=== PATIENT | female | born 1970 | race African-American/Black ===

== ENCOUNTER 2019-04-19 05:43 | Observation (INO) | payer SELFPAY ==
[2019-04-19] MEDS ORDERED: Metoprolol Tartrate 5 MG/5 ML VIAL ONE (05:52)
[2019-04-19 07:31] VITALS: BMI 36.3
[2019-04-19] MEDS ORDERED: Acetaminophen 325 MG TAB PO PRN (08:17)
[2019-04-19] MEDS ORDERED: Ondansetron ODT 4 MG TAB PO PRN (08:17)
[2019-04-19] MEDS: Amlodipine 5 MG TAB PO SCH (09:21)
[2019-04-19 10:30] LABS: Iron 14 ug/dL (50-170); Iron Binding Capacity, Total 494 mcg/dL (265-497)
[2019-04-19 10:37] LABS: Troponin I Less than 0.010 ng/mL (< 0.028)
[2019-04-19 10:48] LABS: Ferritin 4.71 ng/mL (10-291); Thyroid Stimulating Hormone 0.6792 uIU/mL (0.35-4.94)
--- NOTE | 2019-04-19 13:04 | PDOC.EVN ---
Event Note - Event Note Event Note: I have personally seen and examined pt, assessment and plan discussed with BASS VIOL REPAIRER, agreed with note
[2019-04-19 13:54] LABS: Troponin I Less than 0.010 ng/mL (< 0.028)
--- NOTE | 2019-04-19 16:23 | HP ---
PRIMARY CARE PHYSICIAN: None. CHIEF COMPLAINT: Symptomatic anemia. HISTORY OF PRESENT ILLNESS: Ms. Ricardo is a 49-year-old female with past medical history of hypertension, however, does not take any home medications for this, who has presented to [facility] after being transferred from the [place] [facility] after she experienced symptoms of her [id number] anemia. She states that she woke up in the middle of the night with some left-sided chest pain along with some shortness of breath, dizziness, and fatigue. She states that her fatigue has been gradually getting worse over the last couple of days. She states that she has a history of anemia due to her heavy menstrual periods, she states that she had recently moved from [place] to [place] and had denied any PCP or proper followup. She denied any fever, chills, any palpitations, abdominal pain, nausea, or vomiting. She was found to be hypertensive on arrival to the ER at 193/108, this seem to improve to 159/94, status post IV Lopressor 5 mg, she states that her chest pain resolved and she started to feel better. It was found that her anemia was [id number]. The current hemoglobin is 6.5, which was noted to be 7.2 back in September. She states that her last menstrual period was last month, around the . Currently, she denied any chest pain, palpitations, shortness of breath, abdominal pain, nausea, or vomiting. She was lying comfortably in bed. A unit of packed red blood cells is ordered and will be transfused today. She has stable vital signs; BP of 161/73 [QAMARKER] O2 saturation of 99% on room air. She appears to be in no acute distress at this time. She denied any history of iron deficiency anemia, however iron and ferritin levels are pending at this time. Troponin is currently normal and less than 0.010. It is determined that the patient be admitted under observation for further workup and management of her symptoms. REVIEW OF SYSTEMS: All other systems reviewed and found to be negative unless mentioned in the HPI. PAST MEDICAL HISTORY: Hypertension and menorrhagia. PAST SURGICAL HISTORY: section x7. PSYCHIATRIC HISTORY: None. SOCIAL HISTORY: The patient states that she drinks socially, roughly every week, 1 to 5 drinks. She has denied any tobacco or illicit drug use. FAMILY HISTORY: Noncontributory to her condition. KNOWN ALLERGIES: No known drug allergies. CURRENT HOME MEDICATIONS: None. PHYSICAL EXAMINATION: VITAL signs: BP 161/73, pulse 84, respirations are 18, temperature 98.2 degrees Fahrenheit, and O2 saturation 99% on room air. GENERAL: The patient is awake, alert, and oriented x3. She is currently lying comfortably in bed and in no acute distress at this time. HEENT: Atraumatic and normocephalic. Pupils are round and reactive to light. Extraocular muscles are intact. Moist mucous membranes are noted. NECK: Soft and supple. No JVD noted. Trachea midline. CARDIOVASCULAR: Positive S1 and S2. Regular rate and rhythm. No murmur auscultated. RESPIRATORY: Clear to auscultation bilaterally. No wheezes, rales, or rhonchi. ABDOMEN: Soft and nontender. Bowel sounds are present. MUSCULOSKELETAL: Strength 5+ bilaterally upper and lower extremities. Moves all extremities equal. Pedal and radial pulses are 2+ bilaterally. No edema noted. NEUROLOGIC: Cranial nerves 2 through 12 grossly intact. No focal deficits noted. Speech, intact and normal. Gait, not assessed. SKIN: Warm dry and intact. No rashes. No ulcerations noted. PSYCHIATRIC: Good mood and affect. LABORATORY DATA: WBC 7.3, RBC 3.60, hemoglobin 6.5, MCV 63.2, and platelets are 284. D-dimer 0.70. Sodium 142, potassium 3.4, creatinine 0.83, BUN 13, anion gap 16, estimated GFR 89, glucose 110, troponin less than 0.010. BNP 65.2. Lipase 21. DIAGNOSTIC IMAGING: Portable chest x-ray showed no acute cardiopulmonary process. CTA of chest showed no evidence of pulmonary artery embolism. ASSESSMENT/PLAN: 1. Symptomatic anemia, the patient's hemoglobin on arrival was 6.5. One unit of packed red blood cells is ordered and will be transfused today. Her CBC will be closely monitored and rechecked in the a.m. She will undergo further transfusions as needed for hemoglobin less than 7.0. Iron, ferritin, and other studies will be checked and currently pending at this time. 2. History of menorrhagia, currently stable at this time. The patient reports last menstrual period about 3 weeks ago, this is likely the cause of her chronic anemia. 3. Possible demand ischemia, she had reported chest pain and shortness of breath prior to arrival. This is likely secondary to her underlying anemia. Currently, she is asymptomatic at this time. Her cardiac enzymes are currently normal. No further workup at this time. 4. Elevated D-dimer 0.70, her CTA of chest was negative for PE. 5. Hypokalemia, potassium was 3.4. This will be rechecked. 6. Hypertension. The patient does not take any home antihypertensives. Therefore, she will be started on low-dose amlodipine during hospital course and other vital signs will be monitored closely. 7. Deep venous thrombosis and GI prophylaxis, we will hold any anticoagulation at this time due to patient's underlying anemia. 8. Code status, full code. DISPOSITION: The patient will likely be transfused with 1 unit of packed red blood cells. CBC and other lab work will be monitored closely and she will likely be discharged home within the next 24 to 48 hours with close outpatient followup, the patient states that she had just recently moved to [place] and does not have any PCP, she will be provided with further resources for appropriate followup upon discharge. Job ID: [id number]
--- NOTE | 2019-04-19 20:04 | PDOC.EVN ---
Event Note - Event Note Event Note: Informed of patients low Hb 6.5 this am, and no repeat since then. She has had 1 unit PRBCs, will repeat H&H. If low, will continue serial H/Hs and transfuse if necessary. Low iron levels noted, no active menses. Asymptomatic. Also informed of further elevated BP throughout the day 176-180 systolic. Patient asymptomatic. Started on low dose Norvasc 2.5 mg PO by day team. I have started PRN hydralazine, consider switching to BRIE inhibitor or increasing Norvasc. Will continue to monitor BP overnight.
[2019-04-19 20:07] LABS: Hemoglobin 7.4 g/dL (12.0-16.0)
[2019-04-19] MEDS: hydrALAZINE 20 MG/ML VIAL SLOW IVP PRN (21:10)
[2019-04-19 21:42] LABS: Anion Gap 12 mmol/L (10-20); BUN (Urea Nitrogen) 8 mg/dL (7.0-18.7); Calc. Creatinine Clearance 154 mL/min (70-130); Calcium 9.3 mg/dL (7.8-10.44); Carbon Dioxide 27 mmol/L (22-29); Chloride 102 mmol/L (98-107); Estimated GFR-MDRD Greater than 90; Glucose 100 mg/dL (70-105); Magnesium 1.8 mg/dL (1.6-2.6); Potassium 3.2 mmol/L (3.5-5.1); Sodium 138 mmol/L (136-145)
[2019-04-20 06:06] LABS: Anion Gap 12 mmol/L (10-20); BUN (Urea Nitrogen) 8 mg/dL (7.0-18.7); Calc. Creatinine Clearance 165 mL/min (70-130); Calcium 9.3 mg/dL (7.8-10.44); Carbon Dioxide 26 mmol/L (22-29); Chloride 102 mmol/L (98-107); Estimated GFR-MDRD Greater than 90; Glucose 97 mg/dL (70-105); Potassium 3.3 mmol/L (3.5-5.1); Sodium 137 mmol/L (136-145)
[2019-04-20 06:28] LABS: #Eosinphils 0.2 thou/uL (0.0-0.7); #Lymphocytes 1.9 thou/uL (1.20-3.40); #Monocytes 0.6 thou/uL (0.11-0.59); #Neutrophils 4.6 thou/uL (1.40-6.50); %Basophils 0.7 % (0.0-1.0); %Eosinophils 2.7 % (0.0-10.0); %Lymphocytes 25.6 % (21.0-51.0); %Monocytes 8.5 % (0.0-10.0); %Neutrophils 62.6 % (42.0-75.0); Anisocytosis MODERATE=16-30 cells (100X) (0-5/hpf); Hemoglobin 7.8 g/dL (12.0-16.0); Hypochromia SLIGHT = 6-15 cells (100X) (0-5/hpf); MDiff Complete? YES; Mean Corpuscular Hemoglobin 19.8 pg (27.0-31.0); Mean Corpuscular Volume 65.9 fL (78.0-98.0); Mean Platelet Volume 4.7 fL (7.4-10.4); Microcytosis SLIGHT = 6-15 cells (100X) (0-5/hpf); Platelet Count 313 thou/uL (130-400); Platelet Morphology Comment Appears Adequate; Polychromasia SLIGHT = 2-3 cells (100X) (0-2/hpf); RBC Distribution Width 22.6 % (11.5-14.5); Red Blood Cell (RBC) Count 3.92 mill/uL (4.20-5.40); White Blood Cell (WBC) Count 7.4 thou/uL (4.8-10.8)
[2019-04-20] MEDS: hydrALAZINE 20 MG/ML VIAL SLOW IVP PRN (07:33)
[2019-04-20] MEDS: Amlodipine 5 MG TAB PO SCH (07:33)
[2019-04-20] MEDS ORDERED: Ferrous Sulfate 325 MG TAB PO SCH ×2 (10:45→17:00)
[2019-04-20 12:42] VITALS: BP 175/92; TEMP 98.5
--- NOTE | 2019-04-20 18:00 | DIS ---
DATE OF ADMISSION: 04/19/2019 DATE OF DISCHARGE: 04/20/2019 ADMITTING CHIEF COMPLAINT: Shortness of breath, dizziness, and fatigue. FINAL DISCHARGE DIAGNOSES: 1. Acute on chronic blood loss anemia, status post transfusion x1 unit PRBC, symptomatically resolved. 2. Longstanding chronic anemia secondary to menorrhagia, hemoglobin 7.8 status post transfusion, per review of records baseline hemoglobin between 7.2 and 7.4. 3. Hypertension, newly diagnosed. BRIEF HOSPITAL COURSE: Ms. Yari Ricardo is a pleasant 49-year-old female with past medical history significant for chronic anemia as outlined above, who presented to the [facility] in transfer from [facility] after experiencing shortness of breath, dizziness, and fatigue. The patient has a long-standing issue with chronic anemia secondary to menorrhagia. Hysterectomy has been recommended in the past, however, the patient has had issues with followup and funding and has not been able to have this performed. Initial hemoglobin on arrival to our facility was 6.5. She was given 1 unit of PRBC. Followup hemoglobin this morning is 7.8. All of the patient's admitting complaints have resolved. She has ambulated the halls without issue. Her blood pressure was noted to be elevated on arrival and 160 systolic overnight. She was given p.r.n. hydralazine and initiated on antihypertensive regimen with amlodipine, which she has tolerated well. The patient's D-dimer was elevated at 0.7, her CTA of chest was negative for PE. CONDITION ON DISCHARGE: Stable. DISCHARGE DISPOSITION: Home. DISCHARGE INSTRUCTIONS: The patient has been approved for Medicaid, and Case Management has been working closely with the patient this hospitalization to get this funding approved for the patient. She will follow up with both Gynecology and primary care physician at discharge. I have advised her to continue to monitor her blood pressure at home. DISCHARGE MEDICATIONS: New discharge medications for the patient will be amlodipine 5 mg daily and iron sulfate 325 mg b.i.d. The care of this patient has been discussed with Dr. Campoverde, who does agree with the above discharge and plan as noted above. Job ID: [id number]
--- NOTE | 2019-04-25 15:12 | EKG ---
Test Reason : Blood Pressure : / mmHG Vent. Rate : 090 BPM Atrial Rate : 090 BPM P-R Int : 150 ms QRS Dur : 090 ms QT Int : 390 ms P-R-T Axes : 051 007 014 degrees QTc Int : 477 ms Normal sinus rhythm Moderate voltage criteria for LVH, may be normal variant Borderline ECG Confirmed by ISABELA VELÁSQUEZ ([id number]), editor farm journal NAY RODRIGUEZ ([id number]) on 04/25/2019 3:12:26 PM Referred By: Confirmed By:ISABELA VELÁSQUEZ
== END 2019-04-20 13:31 | disposition home or self-care (01) ==
LOC: ERS 05:43 → 2SW 06:04
PROVIDERS: ADMIT Internal Medicine; ATTEND Internal Medicine
DX: D62 Acute posthemorrhagic anemia (principal); N92.0 Excessive and frequent menstruation with regular cycle; R06.02 Shortness of breath; R42 Dizziness and giddiness; R53.83 Other fatigue; I10 Essential (primary) hypertension; E87.6 Hypokalemia
CPT/HCPCS: 36415; 36430; 80048; 82728; 83540; 83550; 83735; 84443; 85025; 86850; 86900; 86901; 93005; 96374; 96375; G0378; J0360; P9016

== ENCOUNTER 2019-07-08 10:28 | Outpatient (CLI) | payer MEDICAID, OTHER ==
--- NOTE | 2019-07-08 11:00 | MMO ---
Bilateral MAMMO Bilat Screen DDI. CLINICAL HISTORY: Patient is 49 years old and is seen for screening. The patient has the following family history of breast cancer: paternal aunt, at age 46, malignant (generic). The patient has no personal history of cancer. VIEWS: The views performed were: bilateral craniocaudal and bilateral mediolateral oblique. This study has been interpreted with the assistance of computer-aided detection. MAMMOGRAM FINDINGS: There are scattered fibroglandular densities. There are benign appearing calcifications seen in both breasts. There are no suspicious masses, suspicious calcifications, or new areas of architectural distortion. IMPRESSION: THERE IS NO MAMMOGRAPHIC EVIDENCE OF MALIGNANCY. A ROUTINE FOLLOW-UP MAMMOGRAM IN 1 YEAR IS RECOMMENDED. ACR BI-RADS Category 2 - Benign finding MAMMOGRAPHY NOTE: 1. A negative mammogram report should not delay a biopsy if a dominant of clinically suspicious mass is present. 2. Approximately 10% to 15% of breast cancers are not detected by mammography. 3. Adenosis and dense breasts may obscure an underlying neoplasm. Reported by: YAMILA PRECIADO MD Electonically Signed: [id number]
== END 2019-07-08 10:29 | disposition home or self-care (01) ==
LOC: BICMAMMO 10:28
PROVIDERS: ATTEND Family Medicine
DX: Z12.31 Encounter for screening mammogram for malignant neoplasm of breast (principal); Z80.3 Family history of malignant neoplasm of breast
CPT/HCPCS: 77067

== ENCOUNTER 2023-05-28 23:02 | Observation (INO) | payer SELFPAY ==
[2023-05-28] MEDS ORDERED: hydrALAZINE 20 MG/ML VIAL ONE (23:32)
[2023-05-29 01:37] VITALS: BMI 39.9
[2023-05-29] MEDS ORDERED: HYDROcodone/Acetaminophen 7.5/325 mg Tablet ONE ×2 (02:51→08:15)
[2023-05-29] MEDS ORDERED: Ondansetron PF 4 MG/2 ML Vial IVP PRN (03:39)
[2023-05-29] MEDS ORDERED: HYDROcodone/Acetaminophen 7.5/325 mg Tablet PO PRN (03:39)
[2023-05-29] MEDS ORDERED: Sodium Chloride 0.9% 1,000 ML IV SCH (03:45)
[2023-05-29 04:12] LABS: #Monocytes 1.3 thou/uL (0.11-0.59); #Neutrophils 5.9 thou/uL (1.40-6.50); %Basophils 0.4 % (0.0-1.0); %Eosinophils 0.1 % (0.0-10.0); %Lymphocytes 9.3 % (21.0-51.0); %Monocytes 16.2 % (0.0-10.0); %Neutrophils 73.6 % (42.0-75.0); Hemoglobin 11.2 g/dL (12.0-16.0); Mean Corpuscular HGB CONC 32.3 g/dL (32.0-36.0); Mean Corpuscular Hemoglobin 27.9 pg (27.0-31.0); Mean Corpuscular Volume 86.3 fl (78.0-98.0); Mean Platelet Volume 8.8 fL (7.4-10.4); Platelet Count 229 10x3/uL (130-400); RBC Distribution Width 18.8 % (11.5-14.5); Red Blood Cell (RBC) Count 4.02 mill/uL (4.20-5.40); White Blood Cell (WBC) Count 8.1 10x3/uL (4.8-10.8)
[2023-05-29 04:30] LABS: Lactic Acid 2.1 mmol/L (0.5-2.2)
[2023-05-29 04:31] LABS: Anion Gap 14 mmol/L (10-20); BUN (Urea Nitrogen) 5 mg/dL (9.8-20.1); Calc. Creatinine Clearance 177 mL/min (70-130); Calcium 7.9 mg/dL (7.8-10.44); Carbon Dioxide 22 mmol/L (22-29); Chloride 102 mmol/L (98-107); Estimated GFR 107; Glucose 123 mg/dL (70-105); Potassium 3.2 mmol/L (3.5-5.1); Sodium 135 mmol/L (136-145)
[2023-05-29 07:16] LABS: Bacteria/HPF None Seen HPF (None Seen); Bilirubin Negative (Negative); Blood, Urine Negative (Negative); CAUTI Indications for Culture Pelvic or flank pain; Clarity Clear (Clear); Glucose, Urine (Dipstick) Normal (Negative); Ketone, Urine Negative (Negative); Leukocyte Negative Leu/uL (Negative); Nitrite Negative (Negative); Protein, Urine (Dipstick) 10 mg/dL (Neg-Trace); RBC/HPF 0-3 HPF (0-3); Squamous Epithelial 0-3 HPF (0-3); Urobilinogen Normal mg/dL (Less than 2); WBC/HPF 0-3 HPF (0-3)
[2023-05-29 07:17] LABS: Urine Culture Reflex No No
[2023-05-29] MEDS ORDERED: Famotidine/PF 20 mg/2ml Vial ONE (08:15)
[2023-05-29] MEDS ORDERED: Ondansetron PF 4 MG/2 ML Vial ONE (08:31)
[2023-05-29] MEDS ORDERED: Famotidine/PF 20 mg/2ml Vial SLOW IVP SCH (09:00)
[2023-05-29] MEDS: Carvedilol 6.25 MG TAB PO SCH ×2 (09:06→17:07)
[2023-05-29] MEDS: Losartan 25 MG TAB PO SCH (09:06)
[2023-05-29] MEDS: Potassium Chloride 20 MEQ TAB PO SCH ×2 (09:23→14:14)
[2023-05-29] MEDS ORDERED: HYDROcodone/Acetaminophen 5/325 mg Tablet ONE (10:30)
[2023-05-29] MEDS: HYDROcodone/Acetaminophen 5/325 mg Tablet PO PRN ×2 (10:35→20:40)
[2023-05-29] MEDS: Doxycycline 100 MG in Sodium Chloride 0.9% 100 ML IVPB SCH ×2 (10:43→20:41)
[2023-05-29] MEDS: Ferrous Sulfate 325 MG TAB PO SCH (17:07)
[2023-05-29 23:11] LABS: Magnesium 1.9 mg/dL (1.6-2.6)
[2023-05-30] MEDS ORDERED: Amlodipine 5 MG TAB PO SCH (05:30)
[2023-05-30] MEDS: Carvedilol 6.25 MG TAB PO SCH (07:05)
[2023-05-30 07:43] VITALS: TEMP 97.6
[2023-05-30] MEDS ORDERED: Carvedilol 6.25 MG TAB PO SCH (08:00)
[2023-05-30 08:03] LABS: #Eosinphils 0.1 thou/uL (0.0-0.7); #Monocytes 0.5 thou/uL (0.11-0.59); #Neutrophils 3.4 thou/uL (1.40-6.50); %Basophils 0.4 % (0.0-1.0); %Eosinophils 1.6 % (0.0-10.0); %Lymphocytes 17.6 % (21.0-51.0); %Monocytes 9.9 % (0.0-10.0); %Neutrophils 69.9 % (42.0-75.0); Hemoglobin 11.2 g/dL (12.0-16.0); Mean Corpuscular HGB CONC 32.5 g/dL (32.0-36.0); Mean Corpuscular Hemoglobin 28.5 pg (27.0-31.0); Mean Corpuscular Volume 87.8 fl (78.0-98.0); Mean Platelet Volume 9.2 fL (7.4-10.4); Platelet Count 213 10x3/uL (130-400); RBC Distribution Width 18.9 % (11.5-14.5); Red Blood Cell (RBC) Count 3.93 mill/uL (4.20-5.40); White Blood Cell (WBC) Count 4.9 10x3/uL (4.8-10.8)
[2023-05-30 08:27] LABS: Anion Gap 14 mmol/L (10-20); BUN (Urea Nitrogen) 6 mg/dL (9.8-20.1); Calc. Creatinine Clearance 172 mL/min (70-130); Calcium 8.3 mg/dL (7.8-10.44); Carbon Dioxide 21 mmol/L (22-29); Chloride 106 mmol/L (98-107); Estimated GFR 106; Glucose 109 mg/dL (70-105); Potassium 3.8 mmol/L (3.5-5.1); Sodium 137 mmol/L (136-145)
[2023-05-30] MEDS: Doxycycline 100 MG in Sodium Chloride 0.9% 100 ML IVPB SCH (08:30)
[2023-05-30] MEDS: Ferrous Sulfate 325 MG TAB PO SCH (08:30)
[2023-05-30] MEDS: Losartan 25 MG TAB PO SCH (08:30)
[2023-05-30 08:34] VITALS: BP 155/88
[2023-05-31] MEDS ORDERED: Amlodipine 5 MG TAB PO SCH (09:00)
== END 2023-05-30 11:10 | disposition home or self-care (01) ==
LOC: ERS 23:02 → ERHOLD 05-29 01:21 → 2SW 05-29 12:40
PROVIDERS: ADMIT Hospitalist; ATTEND Family Medicine
DX: R06.00 Dyspnea, unspecified (principal); R79.89 Other specified abnormal findings of blood chemistry; I16.9 Hypertensive crisis, unspecified; I10 Essential (primary) hypertension; Z79.899 Other long term (current) drug therapy
CPT/HCPCS: 36415; 36416; 80048; 81001; 83605; 83735; 84145; 85025; 87633; 96372; 96374; 96375; 96376; G0378; J0360; J1650; J2405; J3490; J7050; S0028